=== PATIENT | female | born 1990 | race Caucasian/White ===

== ENCOUNTER 2020-09-22 10:52 | Emergency (ER) | payer OTHER, SELFPAY ==
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
[2020-09-22 11:00] VITALS: BP 115/71; PULSE 66; RESP 14; TEMP 36.6; O2SAT 100; BMI 29.5
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
== END 2020-09-22 12:06 | disposition home or self-care (01) ==
PROVIDERS: Emergency Provider Emergency Medicine
DX: S20.212A Contusion of left front wall of thorax, initial encounter (principal); V89.2XXA Person injured in unspecified motor-vehicle accident, traffic, initial encounter; Y93.9 Activity, unspecified; Y92.9 Unspecified place or not applicable; Y99.9 Unspecified external cause status
CPT/HCPCS: 71101; 99283

== ENCOUNTER 2025-02-04 11:29 | Outpatient (AMB) | payer OTHER, SELFPAY ==
--- NOTE | 2025-02-04 11:31 | MHC.PC.OV ---
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 She was going to [facility] for the past few years. The patient has a history of Attention Deficit Hyperactivity Disorder (ADHD), diagnosed at the age of 13. She was initially treated with Strattera and later switched to Concerta, which she found effective. At the age of 20, she discontinued medication and has managed without pharmacological support since then. Recently, she has noticed a decline in her ability to manage symptoms and expressed interest in resuming medication. She recalls being on a high dose of Concerta, which was effective without significant side effects. The patient also mentioned a family history of thyroid disorders, which she is concerned about due to the appearance of chin hairs. She has not had any recent blood work since her last several years ago. In terms of preventative care, she had a Pap smear in 2022, with the next one recommended in 2027. Patient was informed and verbally consented to the use of an ambient scribe for clinic note documentation during this visit. [facility] Medical History No known health problems No known health problems Family History (Updated 02/04/25 @ 11:44 by Melly Pisano MA) Mother No problems noted. Father No problems noted. Social History Housing: Apartment Patient Tobacco Use Status: Never used Tobacco e-Cigarette/Vaping Use: Currently Using (just the vaping) service: No Current occupational status: employed Cognitive needs: No Hearing needs: No Vision needs: No Questionnaire PHQ-9 Over the last 2 weeks, how often have you been bothered by any of the following problems? 1. Little interest or pleasure in doing things: not at all 2. Feeling down, depressed, or hopeless: not at all 3. Trouble falling or staying asleep, or sleeping too much: not at all 4. Feeling tired or having little energy: not at all 5. Poor appetite or overeating: not at all 6. Feeling bad about yourself - or that you are a failure or have let yourself or your family down: not at all 7. Trouble concentrating on things, such as reading the newspaper or watching television: not at all 8. Moving or speaking so slowly that other people could have noticed. Or the opposite - being so fidgety or restless that you have been moving around a lot more than usual: not at all 9. Thoughts that you would be better off or of hurting yourself in some way: not at all Total score: 0 Depression Screening Interpretation: Negative Depression Screening Done: Yes [id number] - PHQ-9 Billing: Yes Source: Developed by Drs. Elvin Lamb, Samantha Neville, Johny Tejeda and colleagues, with an educational karley from [employer]. Thrive Questionnaire Date Thrive assessed: 02/04/25 I am a: Patient Within the past 12 months, did the food you bought not last and you didn't have the money to get more?: Never true Within the past 12 months, did you worry whether your food would run out before you got money to buy more?: Never true Do you have trouble paying for medicines?: No Do you have trouble getting transportation to medical appointments?: No Do you have trouble paying your heating and electricity bill?: No Do you have trouble taking care of your child, family member or friend?: No Do you have trouble with day-to-day activities such as bathing, preparing meals, shopping, managing finances, etc.?: No Are you currently unemployed and looking for a job?: No Are you interested in more education?: No THRIVE Score: 0 AUDIT C Alcohol Use Questionnaire (AUDIT-C) 1. How often do you have a drink containing alcohol?: Monthly or less 2. How many drinks containing alcohol do you have on a typical day when you are drinking?: 1 or 2 3. How often do you have six or more drinks on one occasion?: Less than monthly Total Score: 2 GEMA-7 AMB Questionnaire GEMA-7 Date GEMA - 7 assessed: 02/04/25 Feeling nervous, anxious, or on edge: 0 = Not at all Not being able to stop or control worryin = Not at all Worrying too much about different things: 0 = Not at all Trouble relaxin = Not at all Being so restless that it is hard to sit still: 0 = Not at all Becoming easily annoyed or irritable: 0 = Not at all Feeling afraid as if something awful might happen: 0 = Not at all Total GEMA-7 score (0-4 normal; 5-9 mild; 10-14 moderate; 15-21 severe): 0 Source: Developed by Drs. Elvin Lamb, Samantha Neville, Johny Tejeda and colleagues, with an educational karley from [employer]. GEMA-7 Assessment Billing GEMA-7 Assessment Tool: GEMA-7 Assessment 56494 Review of Systems Narrative CONSTITUTIONAL Denies fatigue or malaise. HEAD/NECK Negative EAR/NOSE/MOUTH/THROAT Negative RESPIRATORY Denies dyspnea, cough, or wheezing. CARDIOVASCULAR Negative GASTROINTESTINAL Denies constipation, diarrhea, or heartburn. MUSCULOSKELETAL Denies back pain or joint pain affecting daily activities. NEUROLOGICAL Reports history of ADHD, denies current headaches or dizziness. PSYCHIATRIC Negative Physical exam (Primary Care) Vital Signs: Last Vital Signs Temp 98 F 02/04/25 11:39 Pulse 78 02/04/25 11:39 BP 120/72 02/04/25 11:39 Pulse Ox 98 02/04/25 11:39 Oxygen Delivery Method Room Air 02/04/25 11:39 BMI result Body Mass Index 30.1 GENERAL Well developed, obese, in no apparent distress HEENT Head-Normocephalic Eyes- PERRLA, EOMI, Conjuctiva clear, lids WNL Ears- Canals clear, TMs WNL Mouth/Throat-No lesions, no erythema, no exudate Neck- Supple, No lymphadenopathy, thyroid WNL RESPIRATORY Normal I:E, Clear to auscultation CARDIOVASCULAR Regular, rate and rhythm, No murmurs or rubs GASTROINTESTINAL Soft, nontender, normal bowel sounds, no masses MUSCULOSKELETAL Back- nontender Joints- no swelling or deformity NEUROLOGICAL Gait normal PSYCHIATRIC Oriented to person, place and time Mood and affect WNL Appearance WNL Speech WNL Thought processes WNL Tobacco/Smoking Status: Tobacco use Status Tobacco use date assessed 02/04/25 02/04/25 11:33 Patient Tobacco Use Status Never used Tobacco 02/04/25 11:33 e-Cigarette/Vaping Use Currently Using (just the 02/04/25 11:45 vaping) PHQ-9: PHQ-9 Score PHQ-9: Total score 0 02/04/25 11:33 Depression Screening Interpretation: Negative Thrive Assessment: Date of Thrive Assessment Date Thrive assessed 02/04/25 02/04/25 11:33 Coding Level of Care Code New Pt New Pt Level 4 (36588) Patient Type New Diagnoses ADHD F90.9 Health care maintenance Z00.00 Additional Codes GEMA-7 Assessment Billing - GEMA-7 Assessment Tool: GEMA-7 Assessment 19814 ([id number]) PHQ-9 - 64774 - PHQ-9 Billing: Yes ([id number]) Time Spent (min) 30 Comment Time spent on chart review, H&P, patient education, orders and referrals Assessment & Plan Assessment & Plan (1) ADHD: Code(s): F90.9 - Attention-deficit hyperactivity disorder, unspecified type Category: Medical Plan: The plan includes obtaining baseline blood work to assess overall health, including thyroid function, given the family history of thyroid disorders. A referral to psychiatry will be made to evaluate the need for resuming ADHD medication, specifically Concerta, which the patient found effective in the past. Follow-up with the primary care provider is recommended in six to eight weeks to review lab results and discuss the potential resumption of medication. (2) Health care maintenance: Code(s): Z00.00 - Encounter for general adult medical examination without abnormal findings Category: Medical Plan: The patient had a Pap smear in 2022, with the next one recommended in 2027, aligning with standard preventative care guidelines. Labs ordered. Plan I discussed with the patient the importance of obtaining baseline blood work to evaluate her overall health, including thyroid function due to her family history. We also talked about the referral to psychiatry for ADHD management and the potential resumption of Concerta, which she found effective previously. A follow-up appointment was scheduled in six to eight weeks to review lab results and discuss further management options. Orders: Orders Complete Blood Count no Diff Today F90.9 - Attention-deficit hyperactivity disorder, unspecified type, Z00.00 - Encounter for general adult medical examination without abnormal findings Comprehensive Met. Panel Today F90.9 - Attention-deficit hyperactivity disorder, unspecified type, Z00.00 - Encounter for general adult medical examination without abnormal findings TSH reflex Free T4 Today Z00.00 - Encounter for general adult medical examination without abnormal findings, Z83.49 - Family history of other endocrine, nutritional and metabolic diseases Lipid Panel Today Z00.00 - Encounter for general adult medical examination without abnormal findings, Z13.220 - Encounter for screening for lipoid disorders Referrals Psychiatry Referral F90.9 - Attention-deficit hyperactivity disorder, unspecified type Medications: Discontinued ibuprofen Discontinued Reason: Patient no longer taking 600 mg PO Q6H PRN 30 tabs 0RF pain lidocaine 4% may leave on for up to 12 hrs Discontinued Reason: Patient no longer taking 1 patch topical DAILY PRN 10 ea 0RF pain cyclobenzaprine Discontinued Reason: Patient no longer taking 10 mg PO TID PRN 14 tabs 0RF muscle spasm Patient Instructions: - Schedule and complete baseline blood work before the next follow-up appointment. - Attend the follow-up appointment in six to eight weeks to discuss lab results and ADHD management. - Await referral to psychiatry for further evaluation of ADHD treatment options.
[2025-02-04 11:39] VITALS: BP 120/72; PULSE 78; TEMP 36.6; O2SAT 98; BMI 30.1
--- OUTSIDE RECORDS SUMMARY | 2025-02-04 14:51 | XMS_ITS | Clinical Summary ---
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 Name Role Phone Unavailable Primary Care Provider Unavailabl e Social History Tobacco Use Types Packs/Day Years Used Date Smoking Tobacco: Never Assessed Comments Unknown Sex and Gender Information Value Date Recorded Sex Assigned at Not on file Legal Sex Female 4:22 PM EST Gender Identity Not on file Sexual Orientation Not on file Plan of Treatment Health Maintenance Due Date Last Done Comments DTaP,Tdap,and Td Vaccines (1 - Tdap) 2011 Hepatitis B Vaccines (1 of 3 - 19+ 3-dose series) 2011 Cervical Cancer Screening: P ap Smear 2013 HPV Vaccines (1 - 3-dose SCD M series) 2019 Depression Screening 04/09/2024 COVID-19 Vaccine ( - 2023-2 5 season) 2024 Influenza Vaccine (#1) 2024 RSV Immunization Adult Patie nts (1 - 1-dose 75+ series) 2067 HIB Vaccines Aged Out No longer eligi ble based on patient's age to complete this topic Hepatitis A Vaccines Aged Out No long er eligible based on patient's age to complete this topic IPV Vaccines Aged Out No longer eligi ble based on patient's age to complete this topic MMR Vaccines Aged Out No longer eligi ble based on patient's age to complete this topic Meningococcal ACWY Vaccine Aged Out N o longer eligible based on patient's age to complete this topic Meningococcal B Vaccine Aged Out No l onger eligible based on patient's age to complete this topic Pneumococcal Vaccine: Pediat rics (0 to 5 Years) and At-Risk Patients (6 to 49 Years) Aged Out No longer eligible b ased on patient's age to complete this topic RSV Immunization Patients Un maria m 20 months Aged Out No longer eligible b ased on patient's age to complete this topic Varicella Vaccines Aged Out No longer eligible based on patient's age to complete this topic
== END 2025-02-04 12:55 | disposition home or self-care (01) ==
LOC: HO.HMCHD 11:30
PROVIDERS: Visit Provider Physician Assistant Medical
DX: F90.9 Attention-deficit hyperactivity disorder, unspecified type (principal); Z00.00 Encounter for general adult medical examination without abnormal findings

== ENCOUNTER → 2025-02-04 11:29 | Outpatient (BNVA) | payer OTHER, SELFPAY | PROVIDERS: Visit Provider Physician Assistant Medical | DX: Z00.00 Encounter for general adult medical examination without abnormal findings (principal); F90.9 Attention-deficit hyperactivity disorder, unspecified type; Z13.31 Encounter for screening for depression; Z13.39 Encounter for screening examination for other mental health and behavioral disorders | CPT/HCPCS: 96127; 99202 ==

== ENCOUNTER 2025-02-09 15:56 | Outpatient (REF) | payer OTHER, SELFPAY ==
--- OUTSIDE RECORDS SUMMARY | 2025-02-09 16:59 | XMS_ITS | Clinical Summary ---
Author Organization [facility] it Address [address] [place] [address] Care Team Providers Care Water Attendant Name Role Phone Unavailable Primary Care Provider [...]
[2025-02-09 17:16] LABS: Hematocrit 37.2 % (37.0-47.0); Hemoglobin 12.4 g/dl (12.0-16.0); Mean Corpuscular HGB Conc 33.3 g/dl (31.0-35.0); Mean Corpuscular Hemoglobin 28.2 pg (27.0-33.0); Mean Corpuscular Volume 84.7 fL (80.0-98.0); NRBC Abs Auto 0.000 X10*3/uL (0.0-0.012); NRBC Pct Auto 0.0 /100WBC (0.0-0.2); Platelet Count 235 X10*3/uL (160-400); Red Blood Count 4.39 X10*6/uL (4.20-5.50); White Blood Count 7.8 X10*3/uL (4.8-10.8)
[2025-02-09 17:48] LABS: Alanine Aminotransferase 22 U/L (0-31); Albumin Level 4.4 g/dL (3.5-5.0); Alkaline Phosphatase 82 U/L (39-117); Anion Gap 7 (12-20); Aspartate Amino Transferase 23 U/L (5-31); Blood Urea Nitrogen 15 mg/dL (9-16); Calcium 8.7 mg/dL (8.4-10.2); Carbon Dioxide 28 mmol/L (22-29); Chloride 108 mmol/L (96-108); Cholesterol 141 mg/dL (<200); Estimated Glomerular Filt Rate > 60; HDL Cholesterol 64 mg/dL (>40); Potassium 4.1 mmol/L (3.3-5.1); Sodium 139 mmol/L (135-145); Total Protein 6.8 g/dL (6.5-8.0); Triglycerides 67 mg/dL (<150)
== END 2025-02-09 15:57 | disposition home or self-care (01) ==
LOC: HO.LAB 15:56
PROVIDERS: PCP Physician Assistant Medical; Visit Provider Physician Assistant Medical
DX: Z00.00 Encounter for general adult medical examination without abnormal findings (principal); F90.9 Attention-deficit hyperactivity disorder, unspecified type; Z13.220 Encounter for screening for lipoid disorders; Z83.49 Family history of other endocrine, nutritional and metabolic diseases
CPT/HCPCS: 36415; 80053; 80061; 84443; 85027

== ENCOUNTER 2025-03-30 08:54 | Outpatient (AMB) | payer OTHER, SELFPAY ==
--- NOTE | 2025-03-30 08:56 | A.OFFPC_ITS ---
Vital Signs 03/30/25 08:59 Height 5 ft 9 in Weight 212 lb BMI 31.3 BP 122/68 Respiration 14 Pulse 72 Pulse Source Pulse Oximeter Temp 97.4 F Temp Source Temporal Artery Scan Pulse Oximetry (%) 98 Oxygen Delivery Method Room Air Intake Visit Reasons: Looking to get back on ADHD RX Compensation Director Required: No Accompanied by: Self / Same As Patient Allergies No Known Allergies (No Known Allergies*) Allergy (Verified 03/30/25 08:56) Medication List - Last Reconciled 03/30/25 by KHADRA Farrar No Known Home Meds Tobacco use date assessed: 02/04/25 Dental Screening Dental Screen Date: 02/04/25 HPI HPI Comments History of Present Illness Details History of Present Illness The patient is a 34 year old female with ADHD presenting for a follow-up visit to review lab results and discuss a referral for ADHD evaluation. Recent c omprehensive lab work, including a complete blood count, liver and kidney function tests, glucose, cholesterol, and thyroid studies, were all within normal limits. The patient has a history of Attention-Deficit/Hyperactivity Disorder (ADHD) and was previously on Concerta, which she believes was a 32 mg dose. A referral has been placed for a psychiatry evaluation, with an appointment scheduled for April 14. She also reports concerns about weight fluctuation, with her weight varying between 175 and 220 pounds. Currently, her weight is approaching 200 pounds, which she finds bothersome. Medical History: - Attention-Deficit/Hyperactivity Disord er, with a history of treatment with Concerta 32 mg. Health Maintenance - Recent lab work including complete blo od count, liver function, kidney function, glucose, cholesterol, and thyroid studies were all normal. - A psychiatry referral was placed for e valuation. - Discussed healthy lifestyle measures, including adequate water intake, good sleep, regular physical activity, and a balanced diet for weight management. Social History - Weight Management: Reports weight fluc tuation between 175 and 220 lbs and is currently nearing 200 lbs. - Eating Habits: Acknowledges eating for reasons other than hunger, such as boredom. - Insurance: Reports switching to a new [employer] plan effective in April and has concerns about network coverage. Results - Labs: Recent comprehensive labs, inclu ding complete blood count, liver function, kidney function, glucose, cholesterol, and thyroid studies, were all within normal limits. Patient was informed and verbally consented to the use of an ambient scribe for clinic note documentation during this visit. [facility] Medical History (Updated 02/04/25 @ 12:08 by KHADRA Farrar) ADHD Health care maintenance No known health problems No known health problems Family History (Updated 02/04/25 @ 11:44 by Melly Pisano MA) Mother No problems noted. Father No problems noted. Social History Housing: Apartment Patient Tobacco Use Status: Never used Tobacco e-Cigarette/Vaping Use: Currently Using (just the vaping) service: No Current occupational status: employed Cognitive needs: No Hearing needs: No Vision needs: No Questionnaire Thrive Questionnaire Date Thrive assessed: 02/04/25 GEMA-7 AMB Questionnaire GEMA-7 Date GEMA - 7 assessed: 02/04/25 Source: Developed by Drs. Elvin Lamb, Samantha Neville, Johny Tejeda and colleagues, with an educational karley from [employer]. Review of Systems Narrative Review of Systems - Constitutional: Reports weight fluctuation. - Psychiatric: Reports history of ADHD. Physical exam (Primary Care) Vital Signs: Last Vital Signs Temp 97.4 F 03/30/25 08:59 Pulse 72 03/30/25 08:59 Resp 14 03/30/25 08:59 BP 122/68 03/30/25 08:59 Pulse Ox 98 03/30/25 08:59 Oxygen Delivery Method Room Air 03/30/25 08:59 BMI result Body Mass Index 31.3 GENERAL Well developed, obese, in no apparent distress HEENT Head-Normocephalic Neck- Supple, No lymphadenopathy, thyroid WNL RESPIRATORY Normal I:E, Clear to auscultation CARDIOVASCULAR Regular, rate and rhythm, No murmurs or rubs NEUROLOGICAL Gait normal PSYCHIATRIC Oriented to person, place and time Mood and affect WNL Appearance WNL Speech WNL Thought processes WNL Tobacco/Smoking Status: Tobacco use Status Tobacco use date assessed 02/04/25 03/30/25 09:00 Patient Tobacco Use Status Never used Tobacco 03/30/25 09:00 e-Cigarette/Vaping Use Currently Using (just the 03/30/25 09:00 vaping) Thrive Assessment: Date of Thrive Assessment Date Thrive assessed 02/04/25 03/30/25 09:00 Narrative Physical Exam Coding Level of Care Code Established Pt Est Pt Level 3 (49324) Established Pt Add On Problem Visit Only Patient Type Established Diagnoses ADHD F90.9 Fluctuation of weight R68.89 Time Spent (min) 25 Comment Time spent on lab review, H&P, patient education and follow up Assessment & Plan Assessment & Plan (1) ADHD: Code(s): F90.9 - Attention-deficit hyperactivity disorder, unspecified type Category: Medical Plan: Patient has an appointment pending with Psychiatrist in April (2) Fluctuation of weight: Code(s): R68.89 - Other general symptoms and signs Plan Plan Patient was informed and verbally consented to the use of an ambient scribe for clinic note documentation during this visit. 1. Attention-Deficit/Hyperactivity Disorder The patient has a history of ADHD, previously taking Concerta 32 mg. A referral has been placed for a psychiatry evaluation scheduled for April 14. The psychiatrist will conduct an evaluation, provide recommendations, and may initiate medication; care can be transferred back for ongoing management once she is on a stable dose. Restarting ADHD medication may also aid in weight management by improving focus and reducing boredom-related eating. 2. Weight Fluctuation The patient expressed concern over weight fluctuation between 175-220 lbs, currently approaching 200 lbs. She was provided with reassurance that such fluctuations can be normal, particularly with seasonal changes. General lifestyle modifications were advised, including maintaining adequate hydration, ensuring good sleep, engaging in regular physical activity, and consuming a balanced diet. A follow-up visit is planned in six months to reassess. Discussion Notes I reviewed the patient's recent lab results, which were all within normal limits. We discussed the psychiatry referral I placed for her ADHD evaluation, and she confirmed her appointment is on April 14. I explained that the psychiatrist will evaluate her and may start medication, after which she can follow up with me for ongoing management once on a stable dose. We also discussed her history of Concerta use. I addressed her concerns about weight fluctuation, providing reassurance that this is common. We discussed how resuming ADHD medication may also help with domonique ght management. I advised on general wellness strategies, including diet, sleep, and physical activity. We agreed to a follow-up appointment in six months. Finally, I reassured her regarding her new insurance plan, as [employer] is widely accepted. Patient Instructions - Your recent lab work, including blood count, liver, kidney, sugar, cholesterol, and thyroid tests, all came back normal. - Please attend your psychiatry appointment on April 14 for an evaluation. - For weight management, focus on drinking plenty of water, getting good sleep, staying active, and eating a balanced diet. - Schedule a follow-up visit with our office in about six months. - Please let us know if any other issues or concerns arise before your next appointment. - Your new [employer] Blue [employer] insurance should not be a problem for your care here.
[2025-03-30 08:59] VITALS: BP 122/68; PULSE 72; RESP 14; TEMP 36.3; O2SAT 98; BMI 31.3
--- OUTSIDE RECORDS SUMMARY | 2025-03-30 09:35 | XMS_ITS | Clinical Summary ---
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
== END 2025-03-30 09:17 | disposition home or self-care (01) ==
LOC: HO.HMCHD 08:54
PROVIDERS: PCP Physician Assistant Medical; Visit Provider Physician Assistant Medical
DX: F90.9 Attention-deficit hyperactivity disorder, unspecified type (principal); R68.89 Other general symptoms and signs

== ENCOUNTER → 2025-03-30 08:54 | Outpatient (BNVA) | payer OTHER, SELFPAY | PROVIDERS: PCP Physician Assistant Medical; Visit Provider Physician Assistant Medical | DX: Z71.89 Other specified counseling (principal); F90.9 Attention-deficit hyperactivity disorder, unspecified type | CPT/HCPCS: 99212 ==